=== PATIENT | male | born 1960 | race Caucasian/White ===

== ENCOUNTER 2018-06-04 06:59 | Day surgery (SDC) | payer MEDICAID ==
[~2018-06-04] VITALS: Ht 165.1 cm; Wt 82.7 kg
[~2018-06-04 06:59] MED LIST: MOXIFLOXACIN HCL 0.5% 3 ML OPHTHALMIC SOLUTION ONE; RINGERS SOLUTION,LACTATED 500 ML IV ONE
[2018-06-04] MEDS ORDERED: NEOMYCIN/POLYMYXIN B/DEXAMETH 3.5 GM OPHTHALMIC OINTMENT OS ONE (07:00)
[2018-06-04] MEDS ORDERED: FentaNYL CITRATE-PF 100 MCG/2 ML VIAL IVP ONE (07:00)
[2018-06-04] MEDS ORDERED: PROPOFOL 1% 20 ML VIAL IVP ONE (07:00)
[2018-06-04] MEDS ORDERED: TETRACAINE HCL/PF 0.5% 4 ML OPHTHALMIC SOLUTION OS ONE (07:00)
[2018-06-04] MEDS ORDERED: BALANCED SALT 15 ML OPHTHALMIC IRRIG.SOLN OS ONE (07:00)
[2018-06-04] MEDS ORDERED: POVIDONE-IODINE 10% 15 ML SOLUTION UD TP ONE (07:00)
[2018-06-04] MEDS ORDERED: TETRACAINE HCL VISCOUS 0.5% 0.6 ML OPHTHALMIC SOLUTION OS ONE (07:00)
[2018-06-04] MEDS ORDERED: MIDAZOLAM HCL 2 MG/2 ML VIAL IVP ONE (07:00)
[2018-06-04] MEDS ORDERED: LIDOCAINE 1%/EPI 1:200,000/PF 10 ML VIAL IM ONE (07:00)
[2018-06-04] MEDS ORDERED: BUPIVACAINE HCL/PF 0.25% 30 ML VIAL INJ ONE (07:00)
[2018-06-04] MEDS ORDERED: RINGERS SOLUTION,LACTATED 500 ML IV ONE (07:00)
[2018-06-04] MEDS: MOXIFLOXACIN HCL 0.5% 3 ML OPHTHALMIC SOLUTION OS SCH ×3 (07:40→07:51)
[2018-06-04] MEDS ORDERED: MitoMYcin 0.2 MG/VIAL KIT FOR OPHTHALMIC USE OS ONE (10:15)
[2018-06-04] MEDS ORDERED: ACETAMINOPHEN 1000 MG/ISO-OSM 100 ML IV ONE ×2 (11:15)
== END 2018-06-04 12:40 | disposition home or self-care (01) ==
LOC: SURGERY 06:59
PROVIDERS: ATTEND Ophthalmology
DX: H11.052 Peripheral pterygium, progressive, left eye (principal)
CPT/HCPCS: 65426; 88304; J0131; J2250; J2704; J3010; J3490 ×2; J7120